=== PATIENT | male | born 1985 | race Caucasian/White ===

== ENCOUNTER → 2017-01-01 | Outpatient (CLI) | payer OTHER ==
--- NOTE | 2017-01-01 13:44 | US ---
EXAMINATION TYPE: US abdomen complete DATE OF EXAM: 01/01/2017 1:12 PM COMPARISON: NONE CLINICAL HISTORY: K81.9 Cholecystitis R10.9 Abd pain. Back and abdominal pain EXAM MEASUREMENTS: Liver Length: 15.2 cm Gallbladder Wall: 0.3 cm CBD: 0.3 cm Spleen: 12.0 cm Right Kidney: 11.3 x 5.1 x 5.4 cm Left Kidney: 10.5 x 5.7 x 5.0 cm Technical limitations due to patient's body habitus and overlying bowel content Pancreas: obscured by overlying bowel gas Liver: slightly heterogeneous, echotexture is coarse Gallbladder: non-mobile hyperechoic area is noted associated with the wall Evidence for sonographic Resendiz's sign: No CBD: visualized portion appears wnl Spleen: wnl Right Kidney: No evidence of hydronephrosis or mass Left Kidney: No evidence of hydronephrosis or mass Upper IVC: wnl Abd Aorta: wnl There is no ascites. IMPRESSION: Exam is limited. Correlate for possible fatty infiltration of the liver versus hepatocell ular disease. Possible gallbladder wall polyp or adherent stone.
== END | disposition home or self-care (01) ==
LOC: RADUSWWP 12:40
PROVIDERS: ATTEND Family Medicine
DX: K81.9 Cholecystitis, unspecified (principal)
CPT/HCPCS: 76700

== ENCOUNTER → 2017-01-15 | Outpatient (CLI) | payer OTHER ==
--- NOTE | 2017-01-15 20:08 | NM ---
EXAMINATION TYPE: NM hepatobiliary w EF DATE OF EXAM: 01/15/2017 4:42 PM COMPARISON: NONE HISTORY: Abdominal pain TECHNIQUE: After the intravenous administration of 5.0 mCi Tc 99m Mebrofenin hepatobiliary scintigrap hy is performed. Immediate images post injection. FINDINGS: There is prompt uptake of the tracer by the liver that has normal size and contour. There is tracer i n the gallbladder at 6 minutes and tracer in the small bowel at 22 minutes which excludes obstruction of the biliary tree. There is no focal liver defect. Tracers mostly cleared from the liver at 60 min utes. The gallbladder ejection fraction after stimulation is 20% which is below the lower limit of normal o f 35%.. IMPRESSION: No evidence of cystic duct or common bile duct obstruction. No focal liver defect. Normal liver function. Abnormal hypokinetic gallbladder ejection fraction of 20% which suggests gallbladder dysfunction.
== END ==
LOC: RADNMMAIN 14:49
PROVIDERS: ATTEND Family Medicine
DX: K82.4 Cholesterolosis of gallbladder (principal)
CPT/HCPCS: 78226; A9537

== ENCOUNTER 2017-02-16 07:15 | Day surgery (SDC) | payer OTHER ==
[2017-02-13 10:43] VITALS: BMI 33.1
[~2017-02-16 07:15] MED LIST: DEXAMETHASONE SOD PHOSPHATE 10 MG/ML 1 ML VIAL IV ONE; HEPARIN SODIUM,PORCINE 5,000 UNIT/ML 1 ML VIAL SQ ONE; LACTATED RINGERS 1,000 ML IV SCH; LIDOCAINE 1% 20 ML VIAL (10MG/ML) FOR IV START INTRADERMA PRN; MIDAZOLAM 2 MG/2 ML VIAL IV PRN; ONDANSETRON 4 MG/2 ML VIAL IVP ONE; SCOPOLAMINE 1.5MG/72HR PATCH TRANSDERM ONE; ceFAZolin 2 GM in SODIUM CHLORIDE 0.9% 100 ML IVPB ONE
[2017-02-16 07:46] VITALS: RESP 16
--- NOTE | 2017-02-16 08:57 | P.GSHP ---
History of Present Illness H&P Date: 02/16/17 Chief Complaint: Right upper quadrant pain This a 31-year-old male who has had complaints of right upper quadrant pain. His recent ultrasound shows evidence of gallstones. He also had a HIDA scan performed showed ejection fraction 20% consistent with biliary dyskinesia. Patient presented today for laparoscopic cholecystectomy - Constitutional Constitutional: Reports as per HPI Past Medical History Additional Past Medical History / Comment(s): HEART MURMUR, MINOR. "PAIN IN MID BACK, STABBING PAINS ON SIDES," OFTEN WHEN EATING, FOR PAST 3 MONTHS. History of Any Multi-Drug Resistant Organisms: None Reported Past Surgical History: Appendectomy Additional Past Surgical History / Comment(s): EXC WISDOM TEETH Past Anesthesia/Blood Transfusion Reactions: No Reported Reaction Past Psychological History: No Psychological Hx Reported Smoking Status: Current every day smoker Past Alcohol Use History: Rare Additional Past Alcohol Use History / Comment(s): SMOKED SINCE 2006, 1/2 PPD. Past Drug Use History: None Reported - Past Family History Mother Family Medical History: No Reported History Medications and Allergies Home Medications Medication Instructions Recorded Confirmed Type Tramadol (Unknown Dose) 1 tab PO TID PRN 02/13/17 History Allergies Allergy/AdvReac Type Severity Reaction Status Date / Time No Known Allergies Allergy Verified 02/16/17 07:47 Surgical - Exam Vital Signs Temp Pulse Resp BP Pulse Ox 97.7 F 68 16 128/67 97 02/16/17 07:45 02/16/17 07:45 02/16/17 07:45 02/16/17 07:45 02/16/17 07:45 - General well developed, no distress - Eyes PERRL - ENT normal pinna - Neck no masses - Respiratory normal expansion - Cardiovascular Rhythm: regular - Abdomen Abdomen: soft, non tender Assessment and Plan Plan: Right upper quadrant pain Chronic colitis that is We'll perform laparoscopic cholecystectomy
[2017-02-16] MEDS ORDERED: GLYCOPYRROLATE 0.2 MG/ML 2 ML VIAL ONE (09:09)
[2017-02-16] MEDS ORDERED: MIDAZOLAM 2 MG/2 ML VIAL ONE (09:09)
[2017-02-16] MEDS ORDERED: PROPOFOL 10 MG/ML 20 ML VIAL IV ONE (09:09)
[2017-02-16] MEDS ORDERED: fentaNYL (PF) 50 MCG/ML 2 ML AMP ONE (09:09)
[2017-02-16] MEDS ORDERED: HYDROmorphone (PF) 1 MG/ML ONE (09:09)
[2017-02-16] MEDS ORDERED: ROCURONIUM BROMIDE 10 MG/ML 10 ML VIAL IV ONE (09:09)
[2017-02-16] MEDS ORDERED: NEOSTIGMINE 1 MG/ML 10 ML VIAL ONE (09:09)
[2017-02-16] MEDS ORDERED: BUPIVACAIN-EPI 0.25%-1:200,000 30 ML VIAL SQ ONE (09:35)
--- NOTE | 2017-02-16 10:04 | P.OP ---
Date of Procedure: 02/16/17 Preoperative Diagnosis: Cholecystitis Postoperative Diagnosis: Cholecystitis Procedure(s) Performed: Laparoscopic cholecystectomy Anesthesia: SOFIA Surgeon: Néstor Lucio Estimated Blood Loss (ml): 5 Pathology: other (Gallbladder) Condition: stable Disposition: PACU Description of Procedure: MThe patient was placed on the operating table. The patient received a general endotracheal tube anesthesia. The patients abdomen was prepped and draped in the usual sterile fashion. Through an infraumbilical stab incision , the fascia of the anterior abdominal wall was grasped with a pair of Kochers and then the Veress needle was placed in the peritoneal cavity. Position of the Veress needle was confirmed with positive drop test. The abdomen was then insufflated. After adequate insufflation, the 10 mm trocar was placed in the peritoneal cavity. Following this the laparoscope was placed in the peritoneal cavity. The patient was placed in the head-up, right side up position and then a 5 mm trocar was placed in the right lateral and right subcostal position under direct visualization. A 8 mm trocar was placed in the epigastric position. The gallbladder was grasped in the fundus and infundibulum. Traction on the gallbladder was placed in the lateral and the cephalad positions. The triangle of Calot was visualized.. The cystic duct was bluntly dissected until the union of the cystic duct and common bile duct was seen. The cystic duct was then divided and sealed with the Harmonic scissors. A PDS Endoloop was then placed throughout the cystic duct stump. The cystic artery divided and sealed with the Harmonic scissors. The gallbladder was then removed from the liver bed using Harmonic scissors. The gallbladder was then extracted through the epigastric port site. Operative field was checked for any bleeding spots and Harmonic scissors was used to coagulate the liver bed. The abdomen was irrigated. The trocars were removed. The skin was closed using interrupted 3-0 Vicryl suture. Dermabond dressing were applied. The patient tolerated the procedure well.
[2017-02-16 10:23] VITALS: TEMP 98.2
[2017-02-16] MEDS ORDERED: KETOROLAC 30 MG/ML 1 ML VIAL IVP ONE (10:27)
[2017-02-16] MEDS: HYDROmorphone 1 MG/ML 1 ML SYRINGE IVP PRN ×2 (10:30→10:37)
[2017-02-16 12:14] VITALS: BP 145/80; PULSE 55
== END 2017-02-16 12:54 | disposition home or self-care (01) ==
LOC: OR 07:15
PROVIDERS: ATTEND Surgery
DX: K80.10 Calculus of gallbladder with chronic cholecystitis without obstruction (principal); R01.1 Cardiac murmur, unspecified; F17.200 Nicotine dependence, unspecified, uncomplicated
CPT/HCPCS: 88304; 47562; J2250; J1644; J1100; J2710; J0690; J2405; J3010; J1885; J1170; J2704

== ENCOUNTER 2021-09-03 09:08 | Day surgery (SDC) | payer BC, OTHER ==
[2021-08-28 13:57] VITALS: BMI 38.9
[~2021-09-03 09:08] MED LIST changes: -DEXAMETHASONE SOD PHOSPHATE 10 MG/ML 1 ML VIAL IV ONE; -HEPARIN SODIUM,PORCINE 5,000 UNIT/ML 1 ML VIAL SQ ONE; -LIDOCAINE 1% 20 ML VIAL (10MG/ML) FOR IV START INTRADERMA PRN; -MIDAZOLAM 2 MG/2 ML VIAL IV PRN; -ONDANSETRON 4 MG/2 ML VIAL IVP ONE; -SCOPOLAMINE 1.5MG/72HR PATCH TRANSDERM ONE; -ceFAZolin 2 GM in SODIUM CHLORIDE 0.9% 100 ML IVPB ONE
[2021-09-03 09:30] VITALS: TEMP 98.1
[2021-09-03] MEDS ORDERED: PROPOFOL 10 MG/ML 20 ML VIAL IV ONE (10:08)
--- NOTE | 2021-09-03 10:16 | P.GSHP ---
History of Present Illness H&P Date: 09/03/21 Chief Complaint: Rectal bleeding 35-year-old male here today for colonoscopy. Patient had a single bloody stool earlier this summer. Volume of blood was somewhat heavy. No constipation or diarrhea. No prior colonoscopy. Denies family history of colon cancer. Mother with ovarian cancer. Past Medical History Past Medical History: Hypertension Additional Past Medical History / Comment(s): having bleeding with stools,HEART MURMUR History of Any Multi-Drug Resistant Organisms: None Reported Past Surgical History: Appendectomy, Cholecystectomy Additional Past Surgical History / Comment(s): EXC WISDOM TEETH Past Anesthesia/Blood Transfusion Reactions: No Reported Reaction Smoking Status: Current every day smoker - Past Family History Mother Family Medical History: Cancer Additional Family Medical History / Comment(s): ovarian CA Medications and Allergies Home Medications Medication Instructions Recorded Confirmed Type Lisinopril [Prinivil] 10 mg PO QAM 08/30/21 09/03/21 History amLODIPine [Norvasc] 5 mg PO QAM 08/30/21 08/30/21 History Allergies Allergy/AdvReac Type Severity Reaction Status Date / Time No Known Allergies Allergy Verified 08/28/21 13:51 Surgical - Exam Vital Signs Temp Pulse Resp BP Pulse Ox 98.1 F 79 18 154/68 95 09/03/21 09:26 09/03/21 09:26 09/03/21 09:26 09/03/21 09:26 09/03/21 09:26 Physical exam: General: Well-developed, well-nourished HEENT: Normocephalic, sclerae nonicteric Abdomen: Nontender, nondistended Extremities: No edema Neuro: Alert and oriented Assessment and Plan (1) Rectal bleeding Narrative/Plan: Will proceed with colonoscopy Current Visit: Yes Status: Acute Code(s): K62.5 - HEMORRHAGE OF ANUS AND RECTUM SNOMED Code(s): 55453916
--- NOTE | 2021-09-03 10:30 | P.PCN ---
Date of Procedure: 09/03/21 Procedure(s) Performed: PREOPERATIVE DIAGNOSIS: Blood in stool POSTOPERATIVE DIAGNOSIS: Normal exam PROCEDURE: Colonoscopy ANESTHESIA: MAC SURGEON: Mason Vazquez M.D. SPECIMENS: None ENDOSCOPIC PROCEDURE: The patient was placed on the endoscopy table in the left decubitus position. The Olympus colonoscope was inserted into the anus and passed under direct visualization to the base of the cecum. The appendiceal orifice was visualized. From that point the scope was slowly withdrawn inspecting all surfaces carefully. There were no neoplastic inflammatory or polypoid lesions throughout the cecum, ascending, transverse, descending, sigmoid and rectum. There was no visible diverticulosis noted. Digital rectal examination was normal. The patient was taken to the recovery room in stable condition per anesthesia guidelines. RECOMMENDATIONS: Resume diet. Follow-up colonoscopy 45-50.
[2021-09-03 11:01] VITALS: BP 113/72; PULSE 62; RESP 16
== END 2021-09-03 11:12 | disposition home or self-care (01) ==
LOC: ORWHC2ENDO 09:08
PROVIDERS: ATTEND Surgery
DX: K92.1 Melena (principal); I10 Essential (primary) hypertension; F17.200 Nicotine dependence, unspecified, uncomplicated
CPT/HCPCS: 45378; J2704

== ENCOUNTER → 2021-11-28 | Outpatient (CLI) | payer BC ==
--- NOTE | 2021-11-29 08:52 | CT ---
EXAMINATION TYPE: CT lumbar spine wo con DATE OF EXAM: 11/28/2021 6:48 PM COMPARISON: None available HISTORY: Lower back pain x [address] DLP: 2714.7 mGycm Automated exposure control for dose reduction was used. TECHNIQUE: Unenhanced CT of the lumbar spine was performed. Bone and soft tissue window settings are submitted as well as coronal and sagittal reconstructions. FINDINGS: Preserved lumbar lordosis. No significant anterolisthesis or retrolisthesis. No definite vertebral julito dy collapse or acute displaced fracture. Right L1 vertebral body hemangioma. Reduced AP dimension of the spinal canal extending from L2 down L5 and most evident at L3 and L4 levels where the spinal alena l stenosis 11 mm and 12 mm respectively. Associated dorsal pedicles is noted. Multilevel facet osteoa rthropathy is also noted. At L1-2 level: No significant disc herniation or protrusion. No central spinal canal stenosis or neur oforaminal stenosis. At L2-3 level: Mild diffuse posterior annular disc relaxation with questionable focal bilateral marc inal protrusions, associated with prominent posterior epidural fat and the above-described congenital factors, causing moderate central spinal canal stenosis and moderate bilateral neuroforaminal stenos is. At L3-4 level: Diffuse posterior disc bulge associated with prominent posterior epidural fat and of t he above described congenital factors, causing moderate to severe central spinal canal stenosis and m oderate bilateral neuroforaminal stenosis. At L4-5 level: Diffuse posterior disc bulge with suspected focal central protrusion, associated with the above-described congenital factors, causing moderate central spinal canal stenosis and moderate b ilateral neuroforaminal stenosis. At L5-S1 level: Right preforaminal and foraminal small disc protrusion, causing no significant centra l spinal canal stenosis with severe right and moderate to severe left neuroforaminal stenosis, compre ssing the corresponding L5 nerve roots. Suspected indentation on the right S1 nerve root within its l ateral recess. No paraspinal lesion. Moderate degenerative changes of the sacroiliac joints. IMPRESSION: Multilevel spinal canal stenosis and neuroforaminal stenosis most augmented by congenital factors as detailed above. Their significance should be clinically correlated.
== END | disposition home or self-care (01) ==
LOC: RADCTMAIN 18:26
PROVIDERS: ATTEND Internal Medicine
DX: M48.061 Spinal stenosis, lumbar region without neurogenic claudication (principal); M99.73 Connective tissue and disc stenosis of intervertebral foramina of lumbar region; Q76.49 Other congenital malformations of spine, not associated with scoliosis
CPT/HCPCS: 72131

== ENCOUNTER → 2022-02-26 | Outpatient (CLI) | payer BC ==
--- NOTE | 2022-02-26 13:23 | P.PN ---
Subjective Progress Note Date: 02/26/22 Principal diagnosis: A 36 yr old male with a history of severe and chronic mid back pain secondary to degenerative disc diseases and lumbar spondylosis with facet arthropathy presents today for evaluation s/p R TFSI L2-L3. He states he experienced 100% pain relief x 1 mo s/p procedure. Pain level is currently at 2 out of 10 in intensity, constant, achy, dull sensation in the lower aspect of his lumbar spine without radiation of pain. Pain is provoked by bending, twisting and lifting. Pain is alleviated with antispasmodic medications, lidocaine patches, alternating heat and ice, home guided exercise regimen, repositioning and rest. He wants to know if it will be okay to visit a chiropractor. Interventional pain procedures completed include R TFESI L2-L3 x1 Patient is currently on antispasmodic Patient denies any side effects of the medication(s), denies excessive drowsiness or sleepiness, denies suicidal ideation and reports that the current pain medication is helping to control the pain and improve activities of daily living. Patient denies any motor or sensory deficits. Patient denies any fever or night sweats, denies any change in the bowel movements or urination. Physical Examination: -Constitutional: Cooperative. Not in acute distress . -HEENT: Neck is supple. No lymphadenopathy. No thyromegaly. Normal thyroid size. Eyes: No ptosis , no icterus, no photophobia. ENT: No auditory deficits. Normal oropharynx. No Thrush. - Respiratory: Chest clear to auscultations bilaterally. No wheezing. No rhonchi. - Cardiovascular: Regular rate and rhythm. S1 / S2 , no S3 , no S4. - Gastrointestinal: Abdomen soft no tenderness. Bowel sounds positive in all four quadrants. No organomegaly. - Genitourinary: Deferred. - Neurologic: Cranial nerve II to XII intact. No focal neurological deficits. - Psychatric: Alert & oriented x 3. Matching mood & appropriate affect. Judgment and insight intact. - Lymphatic: No Lymphadenopathy. - Musculoskeletal: Cervical spine: Muscle bulk/ tone/ strength in the bilateral upper extremities normal Vertebral body tenderness to palpation over Facet loading test positive Thoracic spine Muscle bulk / tone/ strength in the bilateral paraspinal muscles normal Vertebral body tender to palpation over Facet loading test positive Lumbar spine: Motor bulk/ tone/ strength lower extremities , thigh and legs : 5/5 Deep tendon reflexes : Normal Knee Jerk. Normal Ankle Jerk . Vertebral body tenderness to palpation over L2, L3 with jump reflex Lumbar Facet Loading Test positive Straight Leg Raise: positive at 30 degrees right side/ left side Gaenslen's Test positive Sacral spine : Severe tenderness over the Sacroiliac joint: right side / left side Range of motion: Flexion of the lumbar spine <60 degrees Range of motion: Extension of the lumbar spine <20 degrees Gaenslen's Test positive Baudilio's Test positive Jefe test: positive right side / left side Thigh Thrust Test Sacral Thrust Test Assessment and plan: Chronic low back pain secondary to lumbar degenerative disc disease , elizabeth mbar spondylosis with facet arthropathy without myelopathy Recommendation of R TF MITCH of L2-L3 #2. May need a series of injections, up to 3 within a six-month period, for optimal pain relief. Risks, benefits of procedure discussed and pt verbalized understanding. Denies anticoagulant use or medical history of diabetes. All patient questions answered MAPS reviewed and it was appropriate. I have spent 31 minutes on patient care today. Dr Viveros was available by phone for the evaluation of this patient. The time was used to review the medical records including relevant urine studies and Prescription history (MAPs), review of the available imaging, evaluation and examination of the patient, coordination of care with the medical staff and if applicable referring physicians, as well as creation of the medical record PQRS Measure Charge Sheet PQRS Narrative: Smoking Status Current every day smoker Hx Alcohol Use (MH) No Home Medications: Ambulatory Orders Lisinopril [Prinivil] 10 mg PO QAM 08/30/21 amLODIPine [Norvasc] 5 mg PO QAM 08/30/21 Phentermine HCl [Adipex-P] 37.5 mg PO DAILY 01/29/22 Tramadol (Unknown Dose) 1 tab PO TID PRN 01/29/22
[2022-02-26 13:24] VITALS: BP 122/69; PULSE 70; RESP 18; TEMP 98
== END ==
LOC: PNWHC3 13:01
PROVIDERS: ATTEND Specialist
DX: M51.36 Other intervertebral disc degeneration, lumbar region (principal); M47.816 Spondylosis without myelopathy or radiculopathy, lumbar region; G89.29 Other chronic pain; F17.200 Nicotine dependence, unspecified, uncomplicated
CPT/HCPCS: 99211

== ENCOUNTER 2022-04-03 11:43 | Day surgery (SDC) | payer BC ==
[2022-04-02 09:38] VITALS: BMI 40.1
[~2022-04-03 11:43] MED LIST changes: +LIDOCAINE 1% (10MG/ML) FOR IV START INTRADERMA PRN
[2022-04-03 12:01] VITALS: RESP 16; TEMP 97.2
[2022-04-03] MEDS ORDERED: IOPAMIDOL M200 10 ML VIAL ONE (12:51)
[2022-04-03] MEDS ORDERED: methylPREDNISolone ACETATE 80 MG/ML 1 ML VIAL ONE (12:51)
[2022-04-03] MEDS ORDERED: fentaNYL (PF) 50 MCG/ML 2 ML AMP ONE (12:51)
[2022-04-03] MEDS ORDERED: MIDAZOLAM 2 MG/2 ML VIAL ONE (12:51)
--- NOTE | 2022-04-03 13:08 | P.PCN ---
Date of Procedure: 04/03/22 Procedure(s) Performed: PREOPERATIVE DIAGNOSIS: 1-Lumbar radiculopathy . 2-lumbar degenerative disc disease. 3-lumbar foraminal stenosis POSTOPERATIVE DIAGNOSIS: Same as preoperative diagnoses. PROCEDURE 1. Transforaminal epidural steroid injection under fluoroscopic guidance at right L2-3 level. (Fluoroscopy images stored on file in the radiology Department ) 2. Lumbar epidurogram . ANESTHESIA: Local with 1% lidocaine 3 ml , moderate sedation with intravenous Versed 2 mg and fentanyle 100 micrograms. EBL: Minimal PROCEDURE INDICATION: The patient with low back pain and radiculopathy symptoms unresponsive to conservative treatment. PROCEDURE DESCRIPTION / TECHNIQUE: The patient was seen and identified in the preoperative area. Risks, benefits, complications, and alternatives were discussed with the patient. The patient agreed to proceed with the procedure and signed the consent. IV was started, and vital signs were stable. Patient was taken to the OR and time out was completed. The patient was placed in the prone position on procedure table and a pillow was placed under the abdomen to reduce lumbar lordosis. The lumbosacral area was prepped and draped in the usual sterile fashion. Critical pause was taken. Vital signs were closely monitored during the procedure. Conscious sedation was used during the procedure to decrease patient s anxiety. Using oblique fluoroscopy, the chin of the ``Erik dog at right L2-3 level was identified, and the skin and deeper tissues just below was localized with 1% lidocaine. Subsequently, a 22-gauge 5-inch spinal needle was advanced under a tunneled view fluoroscopic guidance just underneath the chin of the ``Erik dog at the right L2-3 Under lateral fluoroscopy, the needle was then advanced to the posterior border of the interforaminal space. After negative aspiration of CSF and blood and with no paresthesias, 1 mL Isovue 200 contrast dye was injected excellent epidurogram and outlining of the nerve root Subsequently, 3 mL of block solution containing 80 mg Depo-Medrol and 2 mL of 0.9% normal saline PF was injected. Needle was removed . At the end of the procedure, skin was cleansed, and bandages were applied. COMPLICATIONS:none DISPOSITION / PLANS: The patient was placed in a supine position and transferred to the recovery area in a stable condition for observation. There was no evidence of lower extremity motor or sensory deficit after the procedure. Patient was discharged from the recovery room after meeting discharge criteria. Home discharge instructions were given to the patient by the staff. The patient was reexamined prior to discharge.
[2022-04-03] MEDS ORDERED: IV FLUID CONTINUATION 1,000 ML IV ONE (13:11)
--- NOTE | 2022-04-03 13:13 | FL ---
EXAMINATION TYPE: FL guided pain mgmt statistic DATE OF EXAM: 04/03/2022 HISTORY: Fluoroscopy time 9 seconds of fluoroscopy provided. IMPRESSION: 1. Fluoroscopy time.
[2022-04-03 13:16] VITALS: BP 122/77; PULSE 63
== END 2022-04-03 13:41 | disposition home or self-care (01) ==
LOC: ORPAIN 11:43
PROVIDERS: ATTEND Specialist
DX: M51.16 Intervertebral disc disorders with radiculopathy, lumbar region (principal); M48.061 Spinal stenosis, lumbar region without neurogenic claudication
CPT/HCPCS: 64483; J2250; J1040; J3010; Q9966; 99152

== ENCOUNTER → 2022-04-28 | Outpatient (CLI) | payer BC ==
[2022-04-28 13:08] VITALS: BP 131/73; PULSE 87; RESP 18; TEMP 98
--- NOTE | 2022-04-28 13:16 | P.PAINPG ---
PQRS Measure Charge Sheet Comment: A 36 yr old male with a history of severe and chronic low back pain secondary to lumbar degenerative disc diseases and lumbar spondylosis with facet arthropathy presents today for evaluation s/p R TFESI L2-L3 #2. Pt states he experienced 20% pain relief s/p procedure. Pain level is currently at 2/10 in intensity but escalates as high as 7/10, constant, deep ache w "pulling sensation" when laying supine. Pain is provoked by massage therapy provoked pain. Pain is alleviated with heat, medications, injections in the past, home exercise regimen, repositioning and rest. Interventional pain procedures completed include R TFESI L2-L3 x2 Patient is currently on Tramadol from Dr Johnson Patient denies any side effects of the medication(s), denies excessive drowsiness or sleepiness, denies suicidal ideation and reports that the current pain medication is helping to control the pain and improve activities of daily living. Patient denies any motor or sensory deficits. Patient denies any fever or night sweats, denies any change in the bowel movements or urination. Physical Examination: -Constitutional: Cooperative. Not in acute distress . - Neurologic: Cranial nerve II to XII intact. No focal neurological deficits. - Psychatric: Alert & oriented x 3. Matching mood & appropriate affect. Judgment and insight intact. - Musculoskeletal: Cervical spine: Muscle bulk/ tone/ strength in the bilateral upper extremities normal Vertebral body tenderness to palpation over Spurling test positive Distraction test positive Facet loading test positive Thoracic spine Muscle bulk / tone/ strength in the bilateral paraspinal muscles normal Vertebral body tender to palpation over Facet loading test positive Lumbar spine: Motor bulk/ tone/ strength lower extremities , thigh and legs : 5/5 Deep tendon reflexes : Normal Knee Jerk. Normal Ankle Jerk . Vertebral body tenderness to palpation over L1, L2 Lumbar Facet Loading Test positive Straight Leg Raise: positive at 30 degrees right side/ left side Gaenslen's Test positive Sacral spine : Severe tenderness over the Sacroiliac joint: right side / left side Range of motion: Flexion of the lumbar spine <60 degrees Range of motion: Extension of the lumbar spine <20 degrees Gaenslen's Test positive Baudilio's Test positive Jefe test: positive right side / left side Thigh Thrust Test Sacral Thrust Test Assessment and plan: Chronic low back pain secondary to Vertebral hemangioma L1-L2, Lumbar DDD, Lumbar stenosis Recommendation of LESI L1-L2. May need a series of injections, his 3rd within a 6 mo period, for optimal pain relief. Risks, benefits of procedure discussed and pt verbalized understanding. Denies anticoagulant use or medical history of diabetes. All patient questions answered MAPS reviewed and it was appropriate. I have spent less than 30 minutes on patient care today. Dr Viveros was available by phone for the evaluation of this patient. The time was used to review the medical records including relevant urine studies and Prescription history (MAPs), review of the available imaging, evaluation and examination of the patient, coordination of care with the medical staff and if applicable referring physicians, as well as creation of the medical record PQRS Narrative: Smoking Status Current every day smoker Hx Alcohol Use (MH) No Home Medications: Ambulatory Orders amLODIPine [Norvasc] 5 mg PO QAM 08/30/21 lisinopriL [Prinivil] 10 mg PO QAM 08/30/21 Phentermine HCl [Adipex-P] 37.5 mg PO DAILY 01/29/22 traMADol HCL 50 mg PO TID PRN 04/02/22 Controlled Substance Measures - Controlled Substance Measures Is patient prescribed a controlled substance at discharge?: No
== END ==
LOC: PNWHC3 12:46
PROVIDERS: ATTEND Specialist
DX: G89.29 Other chronic pain (principal); D18.09 Hemangioma of other sites; M51.36 Other intervertebral disc degeneration, lumbar region; M48.061 Spinal stenosis, lumbar region without neurogenic claudication; F17.200 Nicotine dependence, unspecified, uncomplicated
CPT/HCPCS: 99211

== ENCOUNTER 2022-06-10 07:34 | Day surgery (SDC) | payer BC ==
[~2022-06-10 07:34] MED LIST changes: -LIDOCAINE 1% (10MG/ML) FOR IV START INTRADERMA PRN
[2022-06-10 09:49] VITALS: RESP 18; TEMP 96.9
[2022-06-10] MEDS ORDERED: MIDAZOLAM 2 MG/2 ML VIAL ONE (10:20)
[2022-06-10] MEDS ORDERED: methylPREDNISolone ACETATE 80 MG/ML 1 ML VIAL ONE (10:20)
[2022-06-10] MEDS ORDERED: IOPAMIDOL M200 10 ML VIAL ONE (10:20)
[2022-06-10] MEDS ORDERED: fentaNYL (PF) 50 MCG/ML 2 ML AMP ONE (10:20)
--- NOTE | 2022-06-10 10:36 | P.PCN ---
Date of Procedure: 06/10/22 Description of Procedure: Procedure: 1. Right sided L1-L2 Epidural steroid injection under fluoroscopic guidance # 10/07 , 2. Lumbar epidurogram PREOPERATIVE DIAGNOSIS: Lumbar degenerative disc disease,, lumbar hemangioma, back pain, and hip pain POSTOPERATIVE DIAGNOSIS: Lumbar degenerative disc disease, and lumbar hemangioma, back pain, and hip pain SURGEON: Chao Torrez ANESTHESIA: Local with 1% lidocaine, and IV sedation : Versed 2 mg, and fentanyl 100 g Sedation supervision start time : 1021 sedation Supervision end time: 1030 EBL: None. Specimen removed: None Fluoroscopic image: saved to electronic medical records PROCEDURE INDICATION: The patient had history of Lumbar degenerative disc disease and Lumbar radiculopathy. Failed to conservative therapy. Presented for epidural steroid injection. PROCEDURE DESCRIPTION: The patient was seen and identified in the preoperative area. Risks, benefits, complications, and alternatives were discussed with the patient. The patient agreed to proceed with the procedure and signed the consent. IV was started, and vital signs were stable. Patient was taken to the procedure area, and time out was completed. The patient was placed in the prone position on procedure table and a pillow was placed under the abdomen to reduce lumbar lordosis. The lumbosacral area was prepped and draped in the usual sterile fashion. Critical pause was taken. Vital signs were closely monitored during the procedure. Using anterior-posterior fluoroscopy, the L1-L2 interlaminar space was identified, and skin and deeper tissues were localized with 1% lidocaine. Using anterior-posterior fluoroscopy, lateral fluoroscopy, and [id number] technique, a 20 gauge 3.5 Tuohy epidural needle entered the epidural space. After negative aspiration of CSF and blood with no paresthesias, 2 ml of [id number] contrast dye was injected and an excellent epidurogram was seen. Again after negative aspiration of CSF and blood with no paresthesias, 9 mL of block solution was injected into the epidural space. Block solution contained 80 mg of Depo-Medrol, and 8 mL of preservative-free normal saline. Needle was withdrawn intact, skin was cleansed, and bandages were applied. COMPLICATIONS: None. DISPOSITION / PLANS: The patient was placed in a supine position and transferred to the recovery area in a stable condition for observation. Patient was discharged from the recovery room after meeting discharge criteria. Home discharge instructions given to the patient by the staff. The patient was reexamined prior to discharge. The patient will schedule a follow up in the clinic in 4 weeks.
[2022-06-10] MEDS ORDERED: IV FLUID CONTINUATION 1,000 ML IV ONE (10:37)
--- NOTE | 2022-06-10 10:52 | FL ---
Fluoroscopy HISTORY: Pain 6 seconds fluoroscopy time supplied to the referring clinician. 2 intraoperative C-arm images docume nt the procedure. See dictated report from anesthesia.
[2022-06-10 10:55] VITALS: BP 132/75; PULSE 61
== END 2022-06-10 11:07 | disposition home or self-care (01) ==
LOC: ORPAIN 07:34
DX: M51.16 Intervertebral disc disorders with radiculopathy, lumbar region (principal); M54.50 Low back pain, unspecified; D18.09 Hemangioma of other sites; M54.9 Dorsalgia, unspecified; M25.559 Pain in unspecified hip; I10 Essential (primary) hypertension; E66.9 Obesity, unspecified; Z68.41 Body mass index [BMI] 40.0-44.9, adult; Z90.49 Acquired absence of other specified parts of digestive tract
CPT/HCPCS: 62323; J2250; J1040; J3010; Q9966; 99152